=== PATIENT | female | born 1985 | race Caucasian/White ===

== ENCOUNTER 2016-10-04 16:25 | Emergency (ER) | payer OTHER ==
[~2016-10-04] VITALS: Ht 170.2 cm; Wt 122.5 kg
[~2016-10-04 16:25] MED LIST: ANTIVERT 12.512.5 MG PO; BACTRIM DS 8001 TAB PO; JUNEL FE 1/20 21 TAB PO; MOBIC15 MG PO; PYRIDIUM100 MG PO; PYRIDIUM200 MG PO; ZOFRAN 4MG ORALL4 MG PO
--- NOTE | 2016-10-04 17:02 | ED GI/GU/ABDOMINAL COMPLAINT ---
History of Present Illness General Chief Complaint: Abdominal Pain/Flank Pain Stated Complaint: 10 WKS PREG/CRAMPING DIZZY Source: patient Exam Limitations: no limitations Vital Signs & Intake/Output Vital Signs & Intake/Output Vital Signs Date Time Temp Pulse Resp B/P Pulse O2 O2 Flow FiO2 Ox Delivery Rate 10/04 1827 97.8 78 18 110/71 100 Room Air 10/04 1634 98.3 88 20 125/89 99 Room Air Allergies Coded Allergies: NO KNOWN ALLERGIES (11/16/15) Triage Note: C/O LOWER ABDOMINAL CRAMPING AND DIZZINESS SINCE YESTERDAY WITH SMALL AMOUNT PINK VAGINAL DRAINAGE. GR 6, P2, AB 3, Triage Nurses Notes Reviewed? yes ? y Is pt currently ? No Onset: Gradual Duration: day(s): (2) Timing: no prior history Quality/Severity: cramping Severity Numbers: 4 Location: suprapubic Radiation: no radiation Activities at Onset: none No Modifying Factors: none HPI: Patient is a 31-year-old female who is currently 10 weeks presenting to the emergency department with chief complaint of lower abdominal cramping, spotting that started this morning. Positive nausea and vomiting that has been going on throughout her entire . She is also reporting intermittent dizziness is worse with positional changes. She reports that the spotting had stopped. Denies passing any blood clots. The spotting was pink in color. Cramping in the suprapubic region seems to come and go currently mild. Denies taking anything at home now symptoms. Denies any double vision. Denies any headaches. No upper respiratory congestion. She does report bodyaches. (AGATHA KEMP,HEATHER) Reconcile Medications Meclizine (Antivert) 12.5 MG TABLET 1 TAB PO Q8 DIZZINESS Meclizine HCl 12.5 MG TABLET 1 TAB PO TID PRN DIZZINESS DO NOT DRIVE WHILE TAKING MEDICATION Meloxicam (Mobic) 15 MG TAB 1 TAB PO DAILY PAIN NORETHINDRONE-E.ESTRADIOL-IRON (Junel Fe 1 MG-20 Mcg Tablet) 1 MG-20 MCG (21)/75 MG (7) TABLET 1 TAB PO DAILY CONTROL (Reported) Ondansetron (Zofran Odt) 4 MG TAB.RAPDIS 1 TAB SL TID PRN NAUSEA Ondansetron Odt 4 MG TAB.RAPDIS 1 TAB PO Q8 PRN NAUSEA PHENAZOPYRIDINE HCL (Pyridium) 100 MG TAB 1 TAB PO TID PRN DYSURIA TAKE WITH FOOD Phenazopyridine Hydrochlorid2 (Pyridium) 200 MG TAB 1 TAB PO TID PAIN Pnv No.122/Iron/Folic Acid ( Multi Tablet) 27 MG IRON-800 MCG TABLET 1 TAB PO DAILY VITAMINE (Reported) Progesterone,Micronized (Progesterone) 100 MG CAPSULE 1 CAP PO QPM LOW PROGESTRONE (Reported) Sulfamethoxazole/Trimethopri (Bactrim Ds 800 MG-160 MG) 1 TAB TAB 1 TAB PO BID INFN Sulfamethoxazole/Trimethopri (Bactrim Ds 800 MG-160 MG) 1 TAB TAB 1 TAB PO BID UTI (MASSIMO CANELA DO) Past History Travel History Traveled to [place] past 21 day No Medical History Any Pertinent Medical History? 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 No (HEATHER OWEN) Review of Systems Review of Systems Constitutional: Reports: malaise. Comments Review of systems: See HPI, All other systems negative. Constitutional, no chills fever or weight loss HEENT: No visual changes no sore throat no congestion Cardiovascular: No chest pain ,palpitation , orthopnea or ankle swelling Skin, no jaundice Respiratory: No dyspnea cough sputum or hemoptysis GI: no diarrhea : No dysuria No hematuria Muscle skeletal: no back pain, no neck pain, Neurologic: No numbness no confusion Psych: No stress anxiety or depression,. Heme/endocrine: No bruising no bleeding no polyuria or polydipsia Immunology: No splenectomy or history of AIDS (HEATHER OWEN) Physical Exam Physical Exam General Appearance: no apparent distress, alert, awake, obese Gastrointestinal: normal bowel sounds, soft, non-tender Comments: Well-developed well-nourished person in no acute distress HEENT: Normal EENT exam, extraocular motion intact, no nystagmus. Pupils equally round and reactive to light and accommodation. Nose is atraumatic. External auditory canal and Tympanic membranes clear. Pharynx normal. No swelling or edema. Neck: Supple, no lymphadenopathy, normal range of motion without pain or tenderness Back: Nontender, no CVA tenderness. Cardiovascular: Regular rate and rhythms no murmurs rubs or gallops, normal JVP Respiratory: Chest nontender. No respiratory distress.breath sounds clear to auscultation bilaterally Abdomen: Soft, obese, nontender nondistended, no appreciable organomegaly. Normal bowel sounds. No ascites. No rebound or guarding. Extremity: No edema, no calf tenderness to palpation, normal and equal pulses. Neuro: Alert oriented x3, motor sensory normal, cranial nerves II through XII grossly intact. Cerebellar testing is unremarkable. Skin: acne-like rash noted on the face, noncystic. Psych: Mood and affect is normal, memory and judgment is normal. Core Measures ACS in differential dx? No Severe Sepsis Present: No Septic Shock Present: No (AGATHA KEMP,HEATHER) Progress Differential Diagnosis: VIRAL LABYRINTHITIS, VIRAL SYNDROME, INFLUENZA, DEHYDRATION, ELECTROLYTE ABNORMALITY, THREATENED ,INTRAUTERINE , ORTHOSTATIC HYPOTENSION Plan of Care: Orders Procedure Date/time Status URINALYSIS 10/04 171 Complete MISTAKE 10/04 1701 Active RAPID VIRAL INFLUENZA A 10/04 1700 Complete HUMAN BETA HCG TITRE 10/04 170 Complete COMPREHENSIVE METABOLIC PANEL 10/04 170 Complete CBC WITHOUT DIFFERENTIAL 10/04 1700 Complete RHOGAM WORK-UP 10/04 170 Complete Laboratory Tests 10/04/16 1740: Anion Gap 10, Estimated GFR > 60, BUN/Creatinine Ratio 12.9, Glucose 86, Calcium 8.9, Total Bilirubin 0.4, AST 18, ALT 30, Alkaline Phosphatase 77, Total Protein 7.0, Albumin 3.9, Globulin 3.1, Albumin/Globulin Ratio 1.3, Beta HCG, Quant 46691.0, CBC w Diff NO MAN DIFF REQ, RBC 4.50, MCV 88.1, MCH 29.8, RDW 13.7, MPV 9.8, Gran % 72.8, Lymphocytes % 21.9, Monocytes % 4.9, Eosinophils % 0.2, Basophils % 0.2, Absolute Granulocytes 8.7 H, Absolute Lymphocytes 2.6, Absolute Monocytes 0.6, Absolute Eosinophils 0, Absolute Basophils 0, PUBS MCHC 33.8 10/04/16 1720: Urine Color YEL, Urine Clarity CLEAR, Urine pH 6.0, Ur Specific [place] 1.025, Urine Protein NEG, Urine Ketones NEG, Urine Nitrite NEG, Urine Bilirubin NEG, Urine Urobilinogen 0.2, Ur Leukocyte Esterase NEG, Ur Microscopic EXAM NOT REQUIRED, Urine Hemoglobin NEG, Urine Glucose NEG Diagnostic Imaging: Viewed by Me: Ultrasound. Discussed w/RAD: Ultrasound. Radiology Impression: PATIENT: KELBY ATWOOD PRESENT AGE: 31 PATIENT ACCOUNT NO: [id number] : 84 LOCATION: [facility] ORDERING PHYSICIAN: HEATHER KEMP SERVICE DATE: 10/04/16 EXAM TYPE: US - US- VIABILITY EXAMINATION: US , VIABILITY CLINICAL INFORMATION: Lower abdominal cramping and spotting. Assess for viability. LMP 07/25/2016. COMPARISON: No ultrasounds from this . Pelvic ultrasound 05/12/2015. TECHNIQUE: Real-time sonographic imaging of the uterus and bilateral adnexa. FINDINGS: Limited exam secondary to patient body habitus. There is an oval anechoic structure within the uterus, corresponding to a gestational sac. A pole is identified and has a crown-rump length of 2.98 cm. The gestational sac has a mean sac diameter of 4.5 cm, corresponding to an estimated gestational age of 10 weeks and 1 day, an estimated date of delivery of 05/01/2017. A heart rate of 133 bpm is identified. IMPRESSION: Limited exam secondary to patient body habitus. A gestational sac and pole are identified. The gestational sac has a mean sac diameter of 4.5 cm, corresponding to an estimated gestational age of 10 weeks and 1 day and an estimated date of delivery of 05/01/2017. A heart rate of 133 bpm is identified. 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 Initial ED EKG: none Comments: 10/04/2016 6:23:11 PM our outpatient distress, no focal deficits neurologically intact. Patient does report that she's had nausea and vomiting throughout her . No abdominal pain on exam. Patient will have CBC, CMP,, urinalysis, ultrasound. IV fluids initiated. Orthostatics are negative. 10/04/2016 7:23:57 PM patient informed of all lab results feeling much improved after IV fluids and meclizine. Patient will be discharged likely viral syndrome causing symptoms. Patient will be sent home with meclizine and Zofran. (HEATHER OWEN) Departure Departure Time of Disposition: 190 Disposition: HOME OR SELF CARE Condition: Stable Clinical Impression Primary Impression: Dizziness Secondary Impressions: Intrauterine Referrals: PATIENT HAS NO PRIMARY CARE DR (PCP/Family) Additional Instructions: Follow-up with Dr. Corrigan, call to make an appointment. Increase fluids. Take meclizine and Zofran as prescribed. Return for worsening symptoms or concerns. Departure Forms: Customer Survey D/C INS-APPENDICITIS EXCLUSION General Discharge Information Prescriptions: Current Visit Scripts Ondansetron (Zofran Odt) 1 TAB SL TID PRN NAUSEA #20 TAB Meclizine HCl 1 TAB PO TID PRN DIZZINESS #[address] WHILE TAKING MEDICATION (HEATHER OWEN) PA/LOADER UNLOADER Co-Sign Statement Statement: ED Attending supervision documentation- [X] I saw and evaluated the patient. I have also reviewed all the pertinent lab results and diagnostic results. I agree with the findings and the plan of care as documented in the PA's/LOADER UNLOADER's documentation. [] I have reviewed the ED Record and agree with the PA's/LOADER UNLOADER's documentation. [] Additions or exceptions (if any) to the PAs/LOADER UNLOADER's note and plan are summarized below: [] (MASSIMO CANELA DO
[2016-10-04 17:50] LABS: ABSOLUTE BASOPHIL COUNT 0 /CUMM (0.0-0.2); ABSOLUTE EOSINOPHIL COUNT 0 /CUMM (0.0-0.7); ABSOLUTE GRANULOCYTE CT 8.7 /CUMM (1.4-6.5); ABSOLUTE LYMPH COUNT 2.6 /CUMM (1.2-3.4); ABSOLUTE MONOCYTE COUNT 0.6 /CUMM (0.10-0.60); BASOPHIL % 0.2 % (0.0-2.0); EOSINOPHIL % 0.2 % (0-5); GRANULOCYTE % 72.8 % (42.2-75.2); HEMATOCRIT 39.6 % (37-47); MEAN CORPUSCULAR HGB 29.8 PG (27.0-31.0); MEAN CORPUSCULAR HGB CONC 33.8 G/DL (33.0-37.0); MEAN CORPUSCULAR VOLUME 88.1 FL (81.0-99.0); MEAN PLATELET VOLUME 9.8 FL (7.4-10.4); PLATELET COUNT 227 /CUMM (130-400); RBC DISTRIBUTION WIDTH 13.7 % (11.5-14.5); WHITE BLOOD CELL COUNT 11.9 /CUMM (4.8-10.8)
[2016-10-04] MEDS ORDERED: PRENATAL MULTI1 EAC2 PO (17:50)
[2016-10-04] MEDS ORDERED: PROGESTERONE100 M2 PO (17:50)
--- NOTE | 2016-10-04 18:09 | ULTRASOUND REPORT ---
EXAMINATION: US , VIABILITY CLINICAL INFORMATION: Lower abdominal cramping and spotting. Assess for viability. LMP 07/25/2016. COMPARISON: No ultrasounds from this . Pelvic ultrasound 05/12/2015. TECHNIQUE: Real-time sonographic imaging of the uterus and bilateral adnexa. FINDINGS: Limited exam secondary to patient body habitus. There is an oval anechoic structure within the uterus, corresponding to a gestational sac. A pole is identified and has a crown-rump length of 2.98 cm. The gestational sac has a mean sac diameter of 4.5 cm, corresponding to an estimated gestational age of 10 weeks and 1 day, an estimated date of delivery of 05/01/2017. A heart rate of 133 bpm is identified. IMPRESSION: Limited exam secondary to patient body habitus. A gestational sac and pole are identified. The gestational sac has a mean sac diameter of 4.5 cm, corresponding to an estimated gestational age of 10 weeks and 1 day and an estimated date of delivery of 05/01/2017. A heart rate of 133 bpm is identified. Recommend QUALITY ASSURANCE ASSESSOR follow-up and close monitoring.
[2016-10-04 18:27] VITALS: BP 110/71
[2016-10-04] MEDS ORDERED: MECLIZINE HCL12.5 M1 PO (19:02)
[2016-10-04] MEDS ORDERED: ZOFRAN ODT4 M1 SL (19:02)
== END 2016-10-04 19:39 ==
LOC: ERH 16:25
PROVIDERS: Physician Assistant
DX: O99.89 Other specified diseases and conditions complicating pregnancy, childbirth and the puerperium (principal); R42 Dizziness and giddiness; Z3A.10 10 weeks gestation of pregnancy; R10.30 Lower abdominal pain, unspecified; R11.2 Nausea with vomiting, unspecified
CPT/HCPCS: 81003; 87804; 87804-59; 96361; 96374; J2405; J7040